=== PATIENT | male | born 1935 | race Caucasian/White ===

== ENCOUNTER 2024-03-29 23:38 | Inpatient (IN) | payer MEDICARE, SELFPAY ==
[2024-03-29 19:59] VITALS: BP 149/85
--- NOTE | 2024-03-29 20:30 | ED.GENMED ---
History of Present Illness
General
Chief Complaint: Change in Mental Status
Source: patient
Exam Limitations: none
Time Seen by Provider: 03/29/24 20:13
History of Present Illness
History of Present Illness:
89-year-old male with history of dementia and subdural hematoma presents with 76 the patient has not been himself today. He seems more confused and irritable. He was having trouble getting himself dressed today which is atypical. He is a
difficult historian secondary to his dementia and confusion currently. But he denies any pain. There is no reported fever at the facility. Typically lives pretty much independently but gets help with his medication.
Past History
Past History
ED Past Medical History: GERD, HTN, Hypercholesterolemia and Other (Subdural hematomas bilaterally)
ED Past Surgical History: None
Social History
Tobacco: Former smoker
Alcohol: Daily
Drug: None
Personal: Single
Living: alone
Employment: Retired
Family History
Family History: Other (reviewed and non-contributory)
Phy Exam
Physical Exam
Physical Exam:
General: Well-appearing male no acute respiratory distress
HEENT: Normocephalic atraumatic
Heart: Tachycardic but regular
Lungs: Subtle expiratory wheeze on the left
Abdomen: Soft nontender
Skin is dry
Neurologic exam: Alert and oriented to person only. No facial asymmetry no unilateral deficit
Extremities: No cyanosis
Course
Orders/Labs/Results
Orders:
Orders
03/29/24 20:26
CT Head W/o Iv Contrast Urgent
Comment:
Reason For Exam: confusion
CR Chest - 2 Views Urgent
Comment:
Reason For Exam: weakness
03/29/24 20:28
Electrocardiogram (*1) Urgent
Reason for Study: Fatigue / Weakness
EKG- Treatment ONCE
03/29/24 20:38
COVID-19 Antigen Urgent
Source: Nasal Swab
Complete Blood Count/With Diff Urgent
Comprehensive Metabolic Panel Urgent
Influenza A+B Rapid Molecular Urgent
DELMER Source: Nasal Swab
Specimen Description:
03/29/24 22:00
Lactic Acid Q4H
Comment: CANCEL 2nd LACTIC ACID IF 1st LACTIC ACID IS LESS THAN 2
Urinalysis Reflex To Culture Urgent
Date Specimen was Collected: 03/29/24
Time Specimen was Collected: 21:30
Urine Microscopic Reflex Cult Urgent
Blood Culture Q30M
DELMER Source: Blood/Venous
Specimen Description:
Urine Culture Urgent
DELMER Source: U
Specimen Description:
Date Specimen was Collected: 03/29/24
Time Specimen was Collected: 21:30
03/29/24 22:30
Blood Culture Q30M
DELMER Source: Blood/Venous
Specimen Description:
03/29/24 22:48
*Vancomycin 2,000 mg Loading Dose (consider for >/= 70 kg) Vancomycin [Vancocin] 2,000 mg 0.9% Sodium Chloride 500 ml [Nss] 500 ml IV NOW
0.9% Sodium Chloride 1000 ml [Nss] 2,800 ml IV NOW STA
Zosyn 3.375 grams IVPB NOW Piperacillin/Tazo 3.375 Gram [Zosyn] 3.375 gram in 50 ml IV NOW
03/30/24 02:00
Lactic Acid Q4H
Comment: CANCEL 2nd LACTIC ACID IF 1st LACTIC ACID IS LESS THAN 2
Abnormal Lab Results
03/29/24 03/29/24
20:38 22:00
WBC 24.5 H 10^3/uL
(4.8-10.8)
Abs Immat Gran (auto) 0.4 H 10^3/uL
(0-0.05)
Absolute Neuts (auto) 20.1 H 10^3/uL
(1.4-6.5)
Absolute Monos (auto) 2.7 H 10^3/uL
(0.1-0.6)
Immature Gran % 1.8 H %
(0-0.5)
Neutrophils % 82.0 H %
(42.2-75.2)
Lymphocytes % 5.1 L %
(20.5-51.1)
Monocytes % 10.9 H %
(1.7-9.3)
Sodium 132 L mmol/L
(135-145)
Glucose 131 H mg/dl
(70-99)
Total Bilirubin 2.6 H mg/dl
(0.2-1.3)
Alkaline Phosphatase 184 H U/L
(38-126)
Urine Ketones 1+ A
(Negative)
Ur Occult Blood Reflex 3+ A
(Negative)
Urine Bilirubin 1+ A
(Negative)
Urine Urobilinogen 2+ A
(Neg - 1+)
Leukocyte Esterase Rfl 2+ A
(Negative)
Urine RBC 7-10 A /HPF
(0-2)
Urine WBC (Reflex) 70-80 A /HPF
(0-5)
Urine Bacteria (Reflex) Moderate A
(Negative)
Urine Albumin (Reflex) 1+ A
(Neg - Trace)
03/29/24 20:38
03/29/24 20:38
Vital Signs
Initial and Last Documented VS:
Initial Vital Signs
Temp Pulse Resp BP Pulse Ox
98.8 F 110 26 149/85 94
03/29/24 19:59 03/29/24 19:59 03/29/24 19:59 03/29/24 19:59 03/29/24 19:59
Last Documented Vital Signs
Temp Pulse Resp BP Pulse Ox
98.8 F 110 26 149/85 94
03/29/24 19:59 03/29/24 19:59 03/29/24 19:59 03/29/24 19:59 03/29/24 19:59
MDM/Problems Addressed
Differential Diagnosis Includes:
Confusion and irritability with weakness. Question electrolyte abnormality versus infection versus brain injury.
Will start workup with EKG labs urinalysis chest x-ray CAT scan
*Critical Care Note
Total Time (30-74mins, 75-104mins- exclusive of procedures): Not Applicable
Update Note
Update Note:
Workup here shows right lower lobe pneumonia on x-ray. White blood cell count is 24,000. Also concern for possible UTI. Septic bolus of fluid ordered lactic acid and blood cultures ordered. Vancomycin and Zosyn ordered. Will admit to hospital
ED Attending Note
-
Portions of this chart may have been created with voice recognition software.� Occasional wrong word or��sound alike� substitutions may have occurred due to the inherent limitations of voice recognition software.
Discharge Plan
Departure
Patient Disposition: Admit
Date of Disposition: 03/29/24
Time of Disposition: 22:51
Admit to: Telemetry
Presentation/result/management discussed w/ accepting MD/DO: Hospitalist
Discharge Problem:
Pneumonia
Prescriptions:
No Action
atorvastatin 10 MG tablet
10 mg PO QPM
benazepril-hydrochlorothiazide 1 TAB tablet
1 tab PO DAILY
omeprazole magnesium 20 MG capsule,delayed release(DR/EC)
20 mg PO DAILYPRN PRN (Reason: acid reflux)
clotrimazole-betamethasone 45 GM cream
1 applic topical DAILY
multivitamin with folic acid [Tab-A-Miguel] 1 TABLET tablet
1 tab PO DAILY
levetiracetam 500 MG tablet
750 mg PO BID Qty: 60 0RF
Referrals:
UNKNOWN - PT NOT,INTERVIEWE [Family Provider] -
Interventions
Interventions:
*Risk Screen - Suicide Last Done: 03/29/24 19:59
*General Assessment Last Done: 03/29/24 19:59
*Neglect/Abuse Screening Last Done: 03/29/24 19:59
Discharge Date and Time
Print Language: NIGERIAN
[2024-03-29 20:35] VITALS: BP 136/79
[2024-03-29 21:05] LABS: % Basophils 0.2 % (0-2); % Immature Granulocytes 1.8 % (0-0.5); % Lymphocytes 5.1 % (20.5-51.1); % Monocytes 10.9 % (1.7-9.3); Absolute Basophils 0.1 10^3/uL (0-0.2); Absolute Immature Granulocytes 0.4 10^3/uL (0-0.05); Absolute Lymphocytes 1.2 10^3/uL (1.2-3.4); Absolute Monocytes 2.7 10^3/uL (0.1-0.6); Absolute Neutrophils 20.1 10^3/uL (1.4-6.5); Hematocrit 41.7 % (39.0-52.0); Hemoglobin 14.4 g/dL (13.0-18.0); Mean Corp Hgb Conc. 34.5 g/dL (33.0-37.0); Mean Corpuscular Hgb 28.9 pg (27.0-31.0); Mean Corpuscular Volume 83.6 fL (80.0-94.0); Mean Platelet Volume 8.2 fL (7.4-10.4); Nucleated Red Blood Cells % 0 % (-); Platelet Count 297 10^3/uL (130-400); Red Blood Cell Count 4.99 10^6/uL (4.70-6.10); Red Cell Dist. Width 13.5 % (11.5-14.5); White Blood Cell Count 24.5 10^3/uL (4.8-10.8)
[2024-03-29 21:08] LABS: ALT (SGPT) 22 U/L (0-50); AST (SGOT) 29 U/L (17-59); Albumin 3.6 g/dl (3.5-5.0); Alkaline Phosphatase 184 U/L (38-126); Blood Urea Nitrogen 18 mg/dl (9-20); Calcium 8.7 mg/dl (8.4-10.2); Carbon Dioxide 23 mmol/L (22-30); Chloride 98 mmol/L (98-107); Glucose 131 mg/dl (70-99); Potassium 4.1 mmol/L (3.5-5.1); Sodium 132 mmol/L (135-145); Total Bilirubin 2.6 mg/dl (0.2-1.3); Total Protein 6.5 g/dl (6.3-8.2); eGFR > 60.00
[2024-03-29 21:10] LABS: COVID-19 Antigen Negative (Negative)
[2024-03-29 22:06] LABS: Urine Albumin 1+ (Neg - Trace); Urine Bilirubin 1+ (Negative); Urine Character Very Cloudy (Clear); Urine Glucose Negative (Negative); Urine Ketone 1+ (Negative); Urine Leukocyte 2+ (Negative); Urine Nitrite Negative (Negative); Urine Occult Blood 3+ (Negative); Urine Urobilinogen 2+ (Neg - 1+)
[2024-03-29 22:37] LABS: Urine Bacteria Moderate (Negative); Urine White Cell 70-80 /HPF (0-5)
[2024-03-29 22:39] VITALS: BP 118/73
--- NOTE | 2024-03-29 22:58 | HPS.HSE ---
Family Physician
-
Family Physician: INTERVIEWE UNKNOWN - PT NOT
Chief Complaint
-
confusion
History of Present Illness
89-year-old male with history of dementia, GERD, hypothyroidism, hypertension,, COPD and subdural hematoma presents with change in mental status since yesterday. Patient refused his medications yesterday and today. As per son he was having trouble
expressing himself and answering any questions. He seemed very restless and irritable. Today pretty much all day he stayed in bed. Patient needed assistance with dressing himself today. Which is very unusual for him. But he denies any pain.
There is no reported fever at the facility. Typically lives pretty much independently but gets help with his medication. Patient has chronic cough. Son noted some runny nose today.son stated, his urine was very dark today.
Chest x-ray with pneumonia. Patient received Zosyn and Vanco in ER. Blood culture sent from ER. Admitting for further management
Medical History
Past Medical History
Past Medical History: Reports Other
Additional Past Medical History:
Hypertension
Hyperlipidemia
GERD
Past Surgical History: Reports None
Social History
Tobacco: Former Smoker
Alcohol: None
Drug: None
Personal: Single
Living: Alone
Family History
Family History: Not pertinent
Allergies / Home Medications
Allergies reflects when Allergies were last updated in [facility].
Home Medications with original date entered in [facility]
Allergy/Medication List:
Allergies
Allergy/AdvReac Type Severity Reaction Status Date / Time
No Known Allergies Allergy Unverified 06/28/18 10:48
Home Medications
atorvastatin 10 mg tablet 10 mg PO QPM 06/28/18
benazepril 20 mg-hydrochlorothiazide 25 mg tablet 1 tab PO DAILY 06/28/18
clotrimazole-betamethasone 1 %-0.05 % topical cream 1 applic topical DAILY rash on penis 06/28/18
multivitamin with folic acid 400 mcg tablet (Tab-A-Miguel) 1 tab PO DAILY 06/28/18
omeprazole magnesium 20 mg capsule,delayed release 20 mg PO DAILYPRN PRN acid reflux 06/28/18
levetiracetam 500 mg tablet 750 mg (1.5 x 500 mg) PO BID #60 tabs 06/30/18
Review of Systems
-
Unable to obtain full review of systems at this time due to: Dementia
Constitutional: Reports No Symptoms
EENT: Reports No Symptoms
Respiratory: Reports No Symptoms
Cardiac: Reports No Symptoms
Abdomen/GI: Reports No Symptoms
: Reports No Symptoms
Musculoskeletal: Reports No Symptoms
Skin: Reports No Symptoms
Neurological: Reports No Symptoms
Endocrine: Reports No Symptoms
Hematologic/Lymphatic: Reports No Symptoms
Psych: Reports No Symptoms
Physical Exam
Vital Signs
Vital Signs
Temp Pulse Resp BP Pulse Ox
98.8 F 110 26 149/85 94
03/29/24 19:59 03/29/24 19:59 03/29/24 19:59 03/29/24 19:59 03/29/24 19:59
Physical Exam
General: Well Developed, Well Nourished and No Apparent Distress
HEENT: NormoCephalic, Moist mucous membranes and Atraumatic
Respiratory: Clear
Cardiac: S1/S2 and Regular Rhythm; No Murmur or Rub
GI: Soft, Non Tender, Non Distended and Normal Bowel Sounds; No Organomegaly
Rectal: Deferred by Provider
Musculoskeletal: No Clubbing, No Cyanosis and No Edema
Skin: No Rash
Neuro: Nonfocal/grossly intact
Psych: Calm and Confused
Laboratory Results
-
03/29/24 20:38
03/29/24 20:38
Laboratory Results
Total Bilirubin 2.6 mg/dl (0.2-1.3) H 03/29/24 20:38
AST 29 U/L (17-59) 03/29/24 20:38
ALT 22 U/L (0-50) 03/29/24 20:38
Alkaline Phosphatase 184 U/L (38-126) H 03/29/24 20:38
Data Reviewed
-
Lab Data: Labs Reviewed by me
Impression/Plan
-
#toxic Metabolic encephalopathy/fatigue likely from pneumonia
-Sepsis as evident by WBCs 24, tachycardia
- Zosyn continued
-COVID-negative, flu negative
-Head CT and chest x-ray pending
-Blood and urine culture sent from ER
-obtain prcal, MRSA
-Risperdal prn for agitation
# Urinary tract infection
-IV Zosyn
-culture pending
# GERD
-PPI continued
# Hypothyroidism
-Levothyroxine continued
# Hypertension
-Benazepril continued
# History of COPD
-Albuterol continued
# DVT prophylaxis
-Lovenox subcu
# CODE STATUS
-DNR
[2024-03-29 23:00] VITALS: BP 125/85
--- NOTE | 2024-03-29 23:18 | W.PN.UPDATE ---
Update Note
Progress Note Update
I could not get any information from the patient has dementia with acute confusion
Information gathered by chart review and speaking with the ER staff.
This note serves as an addendum to the H&P by career education teacher JONG Florina MOSQUEDA
HPI
89 M HX Dementia HTN, HLD , B/L SDH seen at ER :
- pw increased confusion and agitation
PHX: as above
Reviewed VS: afebrile ST 110 Tachypneic RR 26
PE
General: No toxic looking , no acute respiratory distress, restless
HEENT: atraumatic
Heart: Tachycardic but regular
Lungs: wheeze on the left ?
Abdomen: Soft nontender
Skin is dry
Neurologic exam: No facial asymmetry no unilateral deficit
Extremities: No cyanosis
Data
WCC 24
Pending LA
Na 132
NEG MRSA screen in 2019
CXR : Rt LLL PNA in my view
ASSESSMENT & PLAN
Sepsis due to PNA
Rt LLL PNA presumed HAP
NEG Prior MRSA screen in 2019
Independent living res of local facility
- BCx sent
- check MRSA screen
- check PCT
- Empiric IV Zosyn for now
Associated with hyperactive TME with agitation
HX Dementia
- Risperidone M 0.25 mg BID PRN fort agitation - hold for sedation
HLD on Atorvastatin - to becont
Essential HTN- cont OP meds
Remote HXSz on Keppra- to be cont
HX b/l SDH
DVT Px: SQH
DNR
IP TLM
[2024-03-29 23:21] LABS: Lactic Acid 1.3 mmol/L (0.7-2.0)
[2024-03-29] MEDS: NSS 2800 ML IV (23:39)
[2024-03-29] MEDS: ZOSYN 50 IV (23:40)
[2024-03-30] VITALS (8 sets, daily range): BP systolic 87–128; BP diastolic 49–72
[2024-03-30] MEDS: VANCOCIN 540 MG IV (00:59)
[2024-03-30] MEDS: DESYREL 50 MG PO ×2 (01:00→22:52)
[2024-03-30] MEDS: RISPERDAL M-TAB (ORALLY DISINTEGRATING) 0.5 MG PO ×2 (02:42→12:41)
[2024-03-30] MEDS: DUONEB 3 ML INH ×2 (03:00→23:03)
[2024-03-30] MEDS: NSS 1000 IV ×2 (04:12→14:18)
[2024-03-30] MEDS: TYLENOL 650 MG PO (05:24)
[2024-03-30 06:11] LABS: Hematocrit 36.9 % (39.0-52.0); Hemoglobin 12.6 g/dL (13.0-18.0); Mean Corp Hgb Conc. 34.1 g/dL (33.0-37.0); Mean Corpuscular Hgb 29.5 pg (27.0-31.0); Mean Corpuscular Volume 86.4 fL (80.0-94.0); Platelet Count 251 10^3/uL (130-400); Red Blood Cell Count 4.27 10^6/uL (4.70-6.10); Red Cell Dist. Width 13.5 % (11.5-14.5); White Blood Cell Count 22.2 10^3/uL (4.8-10.8)
[2024-03-30] MEDS: ZOSYN 50 IV ×3 (06:51→17:10)
[2024-03-30 06:57] LABS: Procalcitonin 1.38 ng/ml (0.0-0.25)
[2024-03-30] MEDS: EXELON PATCH 9.5 MG TRANSDERM (08:21)
[2024-03-30] MEDS: ZESTRIL 10 MG PO (08:24)
[2024-03-30] MEDS: PROTONIX 40 MG PO (08:26)
[2024-03-30] MEDS: SYNTHROID 50 MCG PO (08:27)
[2024-03-30] MEDS: HEPARIN 5000 UNITS SC ×2 (08:28→22:51)
--- NOTE | 2024-03-30 14:02 | W.PN.HOSP.TC ---
Today's Communication/Plan
-
Assessment / Plan
Assessment / Plan
Physical Exam
NAD, resting comfortably in bed
Scleral anicteric
Moist mucous membranes
No JVD
CTA bilateral
Normal S1-S2 no murmurs
Soft nontender nondistended bowel sounds active
No peripheral pitting edema
Moves extremities spontaneously
AAOx1 (person)
TME on dementia likely secondary to underlying infectious process that being UTI vs PNA has high procal
-blood/urine cultures pending
-ivatb with zosyn
-covid/flu neg
-can check b12/folate, tsh
Hyponatremic - hypovolemia
-give fluids
-repeat bmp in the AM
GERD
-Cotninue ppi
Hypothyroidism
-COntinue levothyroxine
-Check tsh
Anticipated Discharge: 24 - 48 hours
Subjective/Interval History
-
Date of Service: March 30, 2024
seen and examined.
confused and demented
no acute overnight events
Objective Data
-
Labs:
Laboratory Results
03/30/24
06:02
WBC 22.2 H
Hgb 12.6 L
Hct 36.9 L
Plt Count 251
Vital Signs:
Vital Signs
Temp Pulse Resp BP Pulse Ox
98.1 F 82 23 87/57 93
03/30/24 12:27 03/30/24 08:24 03/30/24 07:50 03/30/24 12:28 03/30/24 12:29
[2024-03-31] MEDS: ZOSYN 50 IV ×4 (00:24→17:32)
[2024-03-31] MEDS: NSS 1000 IV ×2 (00:28→17:32)
--- NOTE | 2024-03-31 01:30 | PTCARENOTE ---
Patient arrived to unit via hospital bed accompanied by ED PCT and RN. Bob present. IVF infusing via L arm PIV. Nursing assessment completed and as documented. Oriented to room, instructed use of call cr and within reach, VSS, care ongoing.
[2024-03-31 01:34] VITALS: BP 105/62
[2024-03-31 03:00] VITALS: BP 105/57
[2024-03-31 06:01] LABS: Hematocrit 36.6 % (39.0-52.0); Mean Corp Hgb Conc. 32.8 g/dL (33.0-37.0); Mean Corpuscular Hgb 28.7 pg (27.0-31.0); Mean Corpuscular Volume 87.6 fL (80.0-94.0); Mean Platelet Volume 7.9 fL (7.4-10.4); Platelet Count 288 10^3/uL (130-400); Red Blood Cell Count 4.18 10^6/uL (4.70-6.10); Red Cell Dist. Width 13.7 % (11.5-14.5); White Blood Cell Count 17.4 10^3/uL (4.8-10.8)
[2024-03-31 06:35] LABS: Blood Urea Nitrogen 19 mg/dl (9-20); Carbon Dioxide 24 mmol/L (22-30); Chloride 105 mmol/L (98-107); Estimated Creatinine Clearance 47 ml/min; Glucose 93 mg/dl (70-99); Sodium 136 mmol/L (135-145); eGFR > 60.00
[2024-03-31 07:04] LABS: TSH Reflex To Free T4 0.81 uIU/ml (0.47-4.68)
[2024-03-31 07:39] LABS: Folate 6.3 ng/ml (2.76-20); Vitamin B12 > 1000 pg/ml (239-931)
[2024-03-31] MEDS: RISPERDAL M-TAB (ORALLY DISINTEGRATING) 0.5 MG PO ×2 (08:16→22:22)
--- NOTE | 2024-03-31 08:25 | W.PN.UPDATE ---
Update Note
Progress Note Update
I saw and evaluated the patient. I reviewed the resident�s note and agree with findings and plan as documented in the resident�s note.
Gen: NAD, Awake and alert
Eyes: EOMI, PERRLA, no scleral icterus.
Neck: supple.
CV: RRR, +S1/S2, no m/r/g.
Resp: CTAB, no rales, wheezes, or rhonchi.
Abd: +BS, soft, NT, ND
Skin: No rashes.
Neuro: CN 2-12 intact, non-focal.
Psych: Normal mood and affect.
CXR: Findings suggesting mild right lower lobe pneumonia. New.
CT brain: No acute intracranial pathology. Severe atrophy. Progressed. Mild nonacute sinusitis. Improved. Moderate periventricular small vessel ischemic disease. Progressed.
Sepsis, POA, and acute metabolic encephalopathy (with underlying dementia) due to RLL PNA +/- UTI:
-elevated procal
-COVID/Flu NEG
-BCxs NGTD, UCx pending
-imaging above
-cont Zosyn
-cont Exelon patch. Currently on restraints.
Other problems:
Essential HTN: cont ACEi
Hypovolemic hyponatremia, resolved with IVFs
GERD: cont PPI
Hypothyroidism: TSH normal, cont Levoxyl
DNR/heparin
--- NOTE | 2024-03-31 09:33 | W.PN.HOSP.TC ---
Today's Communication/Plan
-
Continue Zosyn
As long as patient is not cooperative with oral intake, continue IV fluid
Continue to monitor CBC, BMP for an additional day
Continue to follow cultures
Case management consulted
OT PT
Assessment / Plan
Assessment / Plan
89-year-old male presenting with increased confusion and agitation to the ED. Was found to have leukocytosis (wbc=24) and mild hyponatremia on initial labs in ED. chest x-ray suggested right lower lobe pneumonia.
Chronic conditions prior to admission
Dementia (d/t Alzheimer's disease?)
History of bilateral subdural hematoma in 2019
Essential hypertension
Hyperlipidemia
GERD
Hypothyroidism
CXR (03/29):
The lungs show moderate airspace disease in right lower lung field concerning for pneumonia.. No pleural effusion or pneumothorax.
Head CT (03/29):
There is severe ventricular sulcal prominence consistent with atrophy. There is mild decreased attenuation about the lateral ventricles consistent with periventricular small vessel ischemic disease. Both progressed.
No acute intracranial pathology.
# Confusion/agitation
- Likely in the setting of underlying dementia exacerbated by infectious process (UTI and/or pneumonia)
- U/C pending
- B/C negative after 24 hours- continue to follow
- Covid/flu negative
- MRSA negative
- Urine Legionella antigen test negative
- Leukocytosis improving-afebrile for the past 24 hours
- Continue Zosyn Q6h
- Vitamin B12 slightly high, folate and TSH within normal limits
- Physical restraints
- Continue rivastigmine for underlying dementia
- Consult case management for dispo plan
- OT/PT/ST
- Neuro consult
# Mild hypovolemic hyponatremia
- Resolved
- Receiving N/S @ 75 cc/h
# History of GERD
- Continue pantoprazole
# History of hypothyroidism
- Continue home levothyroxine
# History of hypertension
- Controlled
- lisinopril 10 with parameters
# DVT prophylaxis
-Heparin 5000 SC every 12 hours
CODE STATUS: DNR
Anticipated Discharge: Within 24 hours
Subjective/Interval History
-
Date of Service: March 31, 2024
Patient is not cooperative in answering questions. Continuously shouts for help ' to get out of here'.
Objective Data
-
Labs:
Laboratory Results
03/31/24
05:32
WBC 17.4 H
Hgb 12.0 L
Hct 36.6 L
Plt Count 288
Sodium 136
Potassium 4.0
Chloride 105
Carbon Dioxide 24
BUN 19
Creatinine 1.1
Glucose 93
Calcium 8.0 L
Vital Signs:
Vital Signs
Temp Pulse Resp BP Pulse Ox
97.9 F 79 14 105/57 94
03/31/24 03:00 03/31/24 03:00 03/31/24 03:00 03/31/24 03:00 03/31/24 03:00
Review of Systems
-
Unable to obtain full review of systems at this time due to: Dementia
Physical Exam
-
HEENT: Normocephalic, Moist Mucous Membranes and Anicteric
Respiratory: Wheezes (on expiration)
Cardiac: Regular Rhythm and S1/S2
GI: Soft, Nontender, Nondistended and Normal Bowel Sounds
Musculoskeletal: No Clubbing, No Cyanosis and No Edema
Skin: Warm and Dry
Neuro: Awake, Alert, Oriented, No Motor Deficits, No Sensory Deficits and Slurred Speech (negative)
Psych: Agitated and Other (non-cooperative)
[2024-03-31 10:41] VITALS: BP 102/57
[2024-03-31] MEDS: EXELON PATCH 9.5 MG TRANSDERM (11:31)
[2024-03-31] MEDS: PROTONIX 40 MG PO (11:32)
[2024-03-31] MEDS: HEPARIN 5000 UNITS SC ×2 (11:32→20:23)
[2024-03-31] MEDS: ZESTRIL 10 MG PO (11:32)
[2024-03-31] MEDS: SYNTHROID PO (11:35)
[2024-03-31 15:00] VITALS: BP 103/58
--- NOTE | 2024-03-31 15:23 | PTOTSP ---
Speech Therapy Evaluation:
Pt exhibits clinical signs of oropharyngeal dysphagia, likely chronic in nature related to hx of dementia, GERD, COPD, and SDH, acutely exacerbated by change in mental status. CXR revealed RLL PNA. UGI Series in 2019 revealed lodgement of barium
tablet in distal esophagus. Pt with 1x immediate cough following thin liquids via straw, however difficult to reliably attribute to aspiration related event d/t limitations at bedside and baseline cough. PO trials d/c d/t increased work of breathing
and audible wheezing.
Recommend:
1. NPO
2. Essential medications crushed in puree
3. Oral care 3x daily
4. VSE to further assess oropharyngeal swallow function given multiple chronic risk factors and RLL PNA
5. ST to follow
--- NOTE | 2024-03-31 16:14 | CM ---
CM spoke with son/Sina Phillip
Pt address incorrect on chart
Pt now resides at [facility] [address] [place] [address]
Pt is in independent living with private pay assist for med management
[facility] and [facility] provides to facility
Pt is independent with ambulation without a AD
He dresses and toilets independently
Son provides cueing a few times a week for bathing
Son is an OT
[facility]- [facility]
Rx- mail order through [facility] or [facility] if needed
VN vs SNF recs
Son noting pt likely will fair better at home with [facility] outpt due to dementia
SNF list bedside for him to review later today
Discharge Disposition- home likely with outpt PT/OT through [facility]
[2024-03-31 19:45] VITALS: BP 152/81
--- NOTE | 2024-03-31 21:23 | PTCARENOTE ---
pt's son and ROMULOA meghna pt has no cardiac hx and refuses telemetry- telemetry box and wires agitating pt- tele box/wires removed per request
[2024-03-31] MEDS: DESYREL 50 MG PO (22:22)
[2024-04-01] MEDS: ZOSYN 50 IV ×2 (00:19→05:06)
[2024-04-01 01:20] VITALS: BP 116/56
[2024-04-01 04:22] VITALS: BMI 29.0
[2024-04-01 06:15] LABS: Hematocrit 34.1 % (39.0-52.0); Hemoglobin 11.6 g/dL (13.0-18.0); Mean Corpuscular Hgb 29.8 pg (27.0-31.0); Mean Corpuscular Volume 87.7 fL (80.0-94.0); Mean Platelet Volume 8.2 fL (7.4-10.4); Platelet Count 316 10^3/uL (130-400); Red Blood Cell Count 3.89 10^6/uL (4.70-6.10); Red Cell Dist. Width 13.9 % (11.5-14.5); White Blood Cell Count 11.9 10^3/uL (4.8-10.8)
[2024-04-01 06:44] LABS: Blood Urea Nitrogen 17 mg/dl (9-20); Calcium 7.7 mg/dl (8.4-10.2); Carbon Dioxide 24 mmol/L (22-30); Chloride 105 mmol/L (98-107); Estimated Creatinine Clearance 52 ml/min; Glucose 79 mg/dl (70-99); Potassium 3.8 mmol/L (3.5-5.1); Sodium 137 mmol/L (135-145); eGFR > 60.00
[2024-04-01 07:47] VITALS: BP 118/65
--- NOTE | 2024-04-01 08:23 | W.PN.UPDATE ---
Addendum entered and electronically signed by Kuldeep Song MD 04/01/24 13:38:
Aspiration pneumonia
Original Note:
Update Note
Progress Note Update
I saw and evaluated the patient. I reviewed the resident�s note and agree with findings and plan as documented in the resident�s note.
Gen: NAD, Awake and alert
Eyes: EOMI, PERRLA, no scleral icterus.
Neck: supple.
CV: remains RRR, +S1/S2, no m/r/g.
Resp: expiratory wheezes which are at least in part due to transmission of upper airway sounds
Skin: No rashes.
Neuro: remains CN 2-12 intact, non-focal.
Psych: Normal mood and affect.
CXR: Findings suggesting mild right lower lobe pneumonia. New.
CT brain: No acute intracranial pathology. Severe atrophy. Progressed. Mild nonacute sinusitis. Improved. Moderate periventricular small vessel ischemic disease. Progressed.
Sepsis, POA, and acute metabolic encephalopathy (with underlying dementia) due to RLL PNA and UTI:
-elevated procal
-COVID/Flu NEG
-BCxs NGTD, UCx with Klebsiella
-imaging above
-stop Zosyn, transition to Ceftin to complete 7 days abx
-cont Exelon patch. Currently on restraints.
Other problems:
Essential HTN: cont ACEi
Hypovolemic hyponatremia, resolved with IVFs
GERD: cont PPI
Hypothyroidism: TSH normal, cont Levoxyl
DNR/heparin
Medically cleared for d/c. Case management aware.
--- NOTE | 2024-04-01 09:20 | PTOTSP ---
Speech Language Pathology
VIDEOFLUOROSCOPIC SWALLOWING EXAMINATION (VSE) completed. Pt moving frequently during study despite frequent redirection, making visualization hard at times. Mild oral and mod-severe pharyngeal dysphagia noted. Minimal distention of
pharyngoesophageal segment (PES) noted with backflow from PES into pyriform sinuses. This was not visualized to spill into airway, but pt is at high risk for this. Penetration to the level of the vocal folds (PAS 5) with questionable aspiration
(difficult to visualize secondary to moving), noted with tsp of thin liquids. With thin liquid via single cup sip, no penetration/aspiration noted on first with penetration to level of the vocal folds with 2nd. Consecutive straw sips of thin
liquids resulted in silent aspiration (PAS 8). Mildly thick liquids via tsp resulted in supraglottic penetration which fully cleared (PAS 2), but via cup, resulted in penetration to the level of the vocal folds. No penetration/aspiration noted
with moderately thick liquids, puree, or regular solids.
Pt is at a high risk for aspiration during the swallow and following swallow secondary to backflow from PES into pyriform sinuses.
Recommend:
(1) Consider IDDSI Level 5 (minced/moist) and moderately thick liquids via tsp/cup. This diet will still carry a risk of aspiration
(2) Aspiration precautions: sit upright during meals and for at least 30 minutes post meals, single sips, no straws, slow rate, intermittent cough/reswallow
(3) Meds whole in puree
(4) Consider GI consult given minimal distention of PES with backflow into pharynx
(5) [employer] [facility] to continue to follow
--- NOTE | 2024-04-01 09:30 | W.PN.HOSP.TC ---
Addendum entered and electronically signed by Gomez Stein MD, Resident 04/01/24 12:30:
Response to CDI:
RLL PNA possibly Aspiration Pneumonia
Original Note:
Today's Communication/Plan
-
Patient is medically stable for discharge today
Assessment / Plan
Assessment / Plan
89-year-old male presenting with increased confusion and agitation to the ED. Was found to have leukocytosis (wbc=24) and mild hyponatremia on initial labs in ED. chest x-ray suggested right lower lobe pneumonia.
Chronic conditions prior to admission
Dementia (d/t Alzheimer's disease?)
History of bilateral subdural hematoma in 2019
Essential hypertension
Hyperlipidemia
GERD
Hypothyroidism
CXR (03/29):
The lungs show moderate airspace disease in right lower lung field concerning for pneumonia.. No pleural effusion or pneumothorax.
Head CT (03/29):
There is severe ventricular sulcal prominence consistent with atrophy. There is mild decreased attenuation about the lateral ventricles consistent with periventricular small vessel ischemic disease. Both progressed.
No acute intracranial pathology.
# Confusion/agitation
- Likely in the setting of underlying dementia exacerbated by infectious process (UTI and/or pneumonia)
- U/C positive for Klebsiella
- B/C negative after 48 hours
- Covid/flu negative
- MRSA negative
- Urine Legionella antigen test negative
- Leukocytosis improving-afebrile for the past 24 hours
- Stop Zosyn, transition to Ceftin x7 days
- Vitamin B12 slightly high, folate and TSH within normal limits
- Patient is more calm after receiving 1 dose of Risperdal- off physical restraints
- Continue rivastigmine for underlying dementia
- Consult case management for dispo plan
- OT/PT/ST-speech recommending VSE
- Case management-after discussion with Son, plan is to discharge to home likely with outpt PT/OT through [facility]
# Mild hypovolemic hyponatremia
- Resolved
- Receiving N/S @ 75 cc/h
# History of GERD
- Continue Pantoprazole
# History of hypothyroidism
- Continue home Levothyroxine
# History of hypertension
- Controlled
- Lisinopril 10 with parameters
# DVT prophylaxis
-Heparin 5000 SC every 12 hours
CODE STATUS: DNR
Anticipated Discharge: Today
Subjective/Interval History
-
Date of Service: April 01, 2024
Patient is pleasantly confused. Not agitated and resting calmly in bed. Physical restraints removed. Does know time of day.
Objective Data
-
Labs:
Laboratory Results
04/01/24
05:19
WBC 11.9 H
Hgb 11.6 L
Hct 34.1 L
Plt Count 316
Sodium 137
Potassium 3.8
Chloride 105
Carbon Dioxide 24
BUN 17
Creatinine 1.0
Glucose 79
Calcium 7.7 L
Vital Signs:
Vital Signs
Temp Pulse Resp BP Pulse Ox
98.5 F 63 18 118/65 92
04/01/24 07:47 04/01/24 07:47 04/01/24 07:47 04/01/24 07:47 04/01/24 07:47
I&O
03/31/24 04/01/24 04/02/24
06:59 06:59 06:59
Intake Total 900 / 900
Balance 900 / 900
Review of Systems
-
Unable to obtain full review of systems at this time due to: Dementia
Physical Exam
-
HEENT: Normocephalic, Moist Mucous Membranes and Anicteric
Respiratory: Wheezes (on expiration (left > right)), Crackles (right-sided) and Non Labored Respirations
Cardiac: Regular Rhythm and S1/S2
GI: Soft, Nontender, Nondistended and Normal Bowel Sounds
Musculoskeletal: No Clubbing, No Cyanosis and No Edema
Skin: Warm and Dry
Neuro: Awake, Alert, No Motor Deficits, No Sensory Deficits and Slurred Speech (negative)
Psych: Agitated and Other (non-cooperative)
[2024-04-01] MEDS: ZESTRIL 10 MG PO (10:13)
[2024-04-01] MEDS: EXELON PATCH 9.5 MG TRANSDERM (10:23)
[2024-04-01] MEDS: PROTONIX 40 MG PO (10:23)
[2024-04-01] MEDS: SYNTHROID 50 MCG PO (10:23)
[2024-04-01] MEDS: HEPARIN 5000 UNITS SC ×2 (10:24→22:22)
[2024-04-01] MEDS: NSS 1000 IV (10:29)
[2024-04-01 11:00] VITALS: BP 122/69; PULSE 66; O2SAT 95
--- NOTE | 2024-04-01 11:04 | CM ---
CM reviewed pt with Dr Song
Findings per VSE- not ready for dc today
CM reviewed pt with PT/OT- recs for return to [place] building with continued therapy, [facility] preferred provider
If speech therapy needed on dc, [facility] confirmed they can provided in building
Update to son/Sina
He noted if [facility] recommended on dc, does not want hospital to provide through
He will purchase walker if needed
Plan to send referral to [facility] if speech needed on dc, son in agreement with provider plan
Discharge Disposition- return home with [facility] outpt vs [facility] with speech
[2024-04-01 11:42] VITALS: BP 122/69; PULSE 62; O2SAT 95
--- NOTE | 2024-04-01 11:58 | PN.CDI ---
CDI
- -
CDI:
Physician Documentation Request
Admit Date: 03/29/24 23:38
Dear Doctor,
Please review the following and provide your response in the progress notes.
Clinical Indicators:
- 04/01 PN 'RLL PNA'
- VSE performed
- 04/01 Speech note 'Mild oral and mod-severe pharyngeal dysphagia noted'
- 'Pt is at a high risk for aspiration during the swallow and following swallow secondary to backflow from PES into pyriform sinuses'
- IV abx Zosyn given
Please clarify in the Progress Notes further specificity regarding the known, suspected or likely type of pneumonia you are treating (recognizing the specific organism may not be known)?
Aspiration Pneumonia - indicate substance such as food or vomitus, oils or other solids or liquids
Staph Pneumonia - indicate if MRSA or MSSA
Strep Pneumonia - indicate if strep B, strep pneumoniae or other type
Gram negative Pneumonia - indicate if Pseudomonas, Klebsiella or other
Other organism - specify known or suspected type
Use of terms such as suspected, likely, concern for, or probable (associated with a specific diagnosis that is being evaluated, monitored, or treated as if it exists) are acceptable and can be coded in the inpatient setting, when documented at the
time of discharge.
Thank you,
Dave Shahid RN
CDI Specialist
Please use your independent medical judgment in providing your response.
--- NOTE | 2024-04-01 12:31 | CON.MD ---
Consultation - Medical
-
dysphagia
89 yo c dementia admitted c mental status change, dx'ed with pneumonia, likely aspiration
Had VSE showing aspiration of thin liquids, but not thickened /pureed
Also showed tight upper esophageal sphincter
Pt awake, some confusion, no distress
Voice strong, no resp symptoms
OC - normal
Pt would not allow/ tolerate endoscopic exam of hypopharynx
A/P Dysphagia
Voice strong, pt alert
Medically stable for d/c today
Cannot fully evaluate hypopharynx , but strong voice
Would recommend thickened diet
Could follow up as outpt though still unlikely to allow hypopharyngeal exam
Esphageal dilation a consideration but would require anesthesia and don't feel pt can understand or consent
[2024-04-01] MEDS: RISPERDAL M-TAB (ORALLY DISINTEGRATING) 0.5 MG PO ×2 (13:30→19:51)
[2024-04-01 14:58] VITALS: BP 132/80
--- NOTE | 2024-04-01 16:11 | W.PN.UPDATE ---
Update Note
Progress Note Update
Spoke with son, Sina, and updated him regarding speech/dietary recommendations.
Also, updated him regarding ENT evaluation. He is interested in OP follow-up appointment with Dr. Callaway's office. I provided him the contact number to call their office.
--- NOTE | 2024-04-01 19:16 | VATNOTE ---
called to restart pt's IV; unsuccessful x3; staff advised pt very agitated while in chair. staff attempting to move pt to bed and restrain. will try again.
--- NOTE | 2024-04-01 20:00 | PTCARENOTE ---
@1915;Pt agitated,impulsive, getting OOB quickly while bed alarm rings, gait unsteady & holding onto bed rails/table top ,oriented x1 to self only,pulled out IV and unable to be verbally redirected.Pt frequently stating,'why I'm I here.' HAND ENGRAVER S.
[facility] verbally notified via phone call on above note.@192;pt placed in soft R&L wrist restraints/4rails for pt's safety.Bed alarm and med sitter maintained.Pt post bladder scanned for 30ml and voided 50ml.
[2024-04-01] MEDS: DUONEB 3 ML INH (21:44)
--- NOTE | 2024-04-01 21:59 | W.PN.UPDATE ---
Update Note
Progress Note Update
Defuroxime tablets are not recommend to be crushed due to bitter taste, recommended by pharmacist to change to Cefprozil suspension as the patient has difficult swallowing. Order changed as recommended.
[2024-04-01] MEDS: CEFZIL 500 MG PO (22:22)
[2024-04-01] MEDS: DESYREL 50 MG PO (22:22)
[2024-04-01 23:18] VITALS: BP 124/61
--- NOTE | 2024-04-01 23:55 | PTCARENOTE ---
@2155;Found pt and pt's son,Sina,in the bathroom and out of restraints. Sina stated,'He had to pee,so I took him out and walked to the bathroom.He only peed a little'.Pt's gait unsteady in bathroom. Instructed sina on pt's unstable gait,getting OOB
without assistance,impulsiveness, not following verbal redirection and the use of restraints for pt safety.Sina agreed to stay and sit with pt as pt sat in chair.Sina agreed to call staff when he was ready to leave. Pt was able to take his evening
meds and prn trazodone 50mg po in the presence of Sina.@2315; Pt appeared to be getting tired and Sina assisted this RN to transfer pt in bed.Sina stated,' His gait was better last night'.Pt appeared comfortable in bed and was closing his eye .Bed
alarm and med sitter maintained. Sina left after pt was in bed.
[2024-04-02] MEDS: NSS 1000 IV (01:14)
--- NOTE | 2024-04-02 05:24 | PTCARENOTE ---
Pt is voiding concentrated dark yellow urine this shift.
[2024-04-02 06:58] LABS: Hematocrit 34.7 % (39.0-52.0); Hemoglobin 11.4 g/dL (13.0-18.0); Mean Corp Hgb Conc. 32.9 g/dL (33.0-37.0); Mean Corpuscular Hgb 28.9 pg (27.0-31.0); Mean Corpuscular Volume 88.1 fL (80.0-94.0); Platelet Count 322 10^3/uL (130-400); Red Blood Cell Count 3.94 10^6/uL (4.70-6.10); Red Cell Dist. Width 13.7 % (11.5-14.5); White Blood Cell Count 9.1 10^3/uL (4.8-10.8)
[2024-04-02 07:00] VITALS: BP 106/56
[2024-04-02 07:22] LABS: Blood Urea Nitrogen 13 mg/dl (9-20); Calcium 7.8 mg/dl (8.4-10.2); Carbon Dioxide 24 mmol/L (22-30); Chloride 104 mmol/L (98-107); Estimated Creatinine Clearance 65 ml/min; Glucose 90 mg/dl (70-99); Potassium 3.9 mmol/L (3.5-5.1); Sodium 136 mmol/L (135-145); eGFR > 60.00
--- NOTE | 2024-04-02 08:51 | W.PN.HOSP.TC ---
Today's Communication/Plan
-
Patient is medically stable for discharge
Son has left message for his dad to be discharged to SNF
CM will work on dispo
Assessment / Plan
Assessment / Plan
89-year-old male presenting with increased confusion and agitation to the ED. Was found to have leukocytosis (wbc=24) and mild hyponatremia on initial labs in ED. chest x-ray suggested right lower lobe pneumonia.
Chronic conditions prior to admission
Dementia (d/t Alzheimer's disease?)
History of bilateral subdural hematoma in 2019
Essential hypertension
Hyperlipidemia
GERD
Hypothyroidism
CXR (03/29):
The lungs show moderate airspace disease in right lower lung field concerning for pneumonia.. No pleural effusion or pneumothorax.
Head CT (03/29):
There is severe ventricular sulcal prominence consistent with atrophy. There is mild decreased attenuation about the lateral ventricles consistent with periventricular small vessel ischemic disease. Both progressed.
No acute intracranial pathology.
# Confusion/agitation
- Likely in the setting of underlying dementia exacerbated by infectious process (UTI and/or pneumonia)
- U/C positive for Klebsiella
- B/C negative after 72 hours
- Covid/flu negative
- MRSA negative
- Urine Legionella antigen test negative
- Leukocytosis resolved-afebrile for the past 72 hours
- Zosyn dc'ed , transitioned to Ceftin x7 days-patient could not tolerate Ceftin and was given Cefzil instead
- Vitamin B12 slightly high, folate and TSH within normal limits
- Patient received Risperdal x2 over the past 24 hours- required physical restraints at night
- Continue rivastigmine for underlying dementia
- Case management involved re dispo plan-Patient's son, Axel, who is POA, would like his dad to go to SNF
- Appreciate speech evaluation-VSE shows minimal distention of PES with backflow into pharynx-recommend IDDSI 5 and thick liquids- Also consulted ENT and GI (through [facility])
- Appreciate ENT- Pt would not allow/ tolerate endoscopic exam of hypopharynx-Esphageal dilation a consideration as OP-Patient's son was given contact information for Dr. Callaway's office to follow as outpatient
- Appreciate GI-if patient does not tolerate diet, could consider PEG
# Mild hypovolemic hyponatremia
- Resolved
- Receiving N/S @ 75 cc/h
# History of GERD
- Continue Pantoprazole
# History of hypothyroidism
- Continue home Levothyroxine
# History of hypertension
- Controlled
- Lisinopril 10 with parameters
# DVT prophylaxis
-Heparin 5000 SC every 12 hours
CODE STATUS: DNR
Anticipated Discharge: Within 24 hours
Subjective/Interval History
-
Date of Service: April 02, 2024
Patient is sleeping in bed. No agitated or violent. Mentions he is feeling good.
Objective Data
-
Labs:
Laboratory Results
04/02/24
06:09
WBC 9.1
Hgb 11.4 L
Hct 34.7 L
Plt Count 322
Sodium 136
Potassium 3.9
Chloride 104
Carbon Dioxide 24
BUN 13
Creatinine 0.8
Glucose 90
Calcium 7.8 L
Vital Signs:
Vital Signs
Temp Pulse Resp BP Pulse Ox
98 F 57 17 106/56 95
04/02/24 07:00 04/02/24 07:00 04/02/24 07:00 04/02/24 07:00 04/02/24 07:00
I&O
04/01/24 04/02/24 04/03/24
06:59 06:59 06:59
Intake Total 900 / 900 1140 / 1140
Output Total 275 / 275
Balance 900 / 900 865 / 865
Review of Systems
-
Unable to obtain full review of systems at this time due to: Dementia
Physical Exam
-
HEENT: Normocephalic, Moist Mucous Membranes and Anicteric
Respiratory: Wheezes (on expiration (left > right)), Crackles (right-sided) and Non Labored Respirations
Cardiac: Regular Rhythm and S1/S2
GI: Soft, Nontender, Nondistended and Normal Bowel Sounds
Musculoskeletal: No Clubbing, No Cyanosis and No Edema
Skin: Warm and Dry
Neuro: Awake, Alert, No Motor Deficits, No Sensory Deficits and Slurred Speech (negative)
Psych: Agitated and Other (non-cooperative)
--- NOTE | 2024-04-02 08:59 | CM ---
Addendum entered by Gaviota Joseph RN 04/02/24 15:43:
CM spoke with Rc from [facility]. He confirmed that [facility] have received clinicals and face sheet. CM provided correct address for [place].
Addendum entered by Gaviota Joseph RN 04/02/24 10:55:
Patient's son evaluated the patient at bedside this morning and feels patient will do fine at home with [facility] and [facility].
Referral faxed to [facility] ([phone])
[facility] fax ([phone])
Patient's son will provide transportation home. Attending updated.
Addendum entered by Gaviota Joseph RN 04/02/24 09:30:
IMM reviewed with patient's son via telephone. Copy of letter left at bedside.
Original Note:
Received message from the patient's son that he is interested in the patient going to SNF prior to returning to home. Requested referrals be sent to [place], [facility], [facility], and [facility]. Sent with [facility]. CM continues to
be available to patient/family and is monitoring medical plan for needs at discharge.
Plan: Discharge to SNF/rehab once bed secured. No precert required.
[2024-04-02] MEDS: CEFZIL 500 MG PO (09:15)
[2024-04-02] MEDS: EXELON PATCH 9.5 MG TRANSDERM (09:16)
[2024-04-02] MEDS: SYNTHROID 50 MCG PO (09:16)
[2024-04-02] MEDS: HEPARIN 5000 UNITS SC (09:16)
[2024-04-02] MEDS: ZESTRIL 10 MG PO (09:16)
[2024-04-02] MEDS: PROTONIX 40 MG PO (09:16)
[2024-04-02 11:00] VITALS: BP 122/84
--- NOTE | 2024-04-02 11:31 | W.PN.UPDATE ---
Update Note
Progress Note Update
I saw and evaluated the patient. I reviewed the resident�s note and agree with findings and plan as documented in the resident�s note.
No new complaints.
Gen: NAD, Awake and alert
Eyes: EOMI, PERRLA, no scleral icterus.
Neck: supple.
CV: continues to remain RRR, +S1/S2, no m/r/g.
Resp: CTAB anteriorly
Skin: No rashes.
Neuro: continues to remain CN 2-12 intact, non-focal.
Psych: Normal mood and affect.
CXR: Findings suggesting mild right lower lobe pneumonia. New.
CT brain: No acute intracranial pathology. Severe atrophy. Progressed. Mild nonacute sinusitis. Improved. Moderate periventricular small vessel ischemic disease. Progressed.
Sepsis, POA, and acute metabolic encephalopathy (with underlying dementia) due to RLL aspiration PNA and UTI:
-elevated procal
-COVID/Flu NEG
-BCxs NGTD, UCx with Klebsiella
-imaging above
-was on Zosyn, now transitioned to Cefprozil to complete 7 days abx
-cont Exelon patch.
Other problems:
Essential HTN: cont ACEi
Hypovolemic hyponatremia, resolved with IVFs
GERD: cont PPI
Hypothyroidism: TSH normal, cont Levoxyl
Patient's son updated at bedside.
DNR/heparin
Medically cleared for discharge.
Total time spent on d/c = 31 min. This included today's physical exam, progress note, review of laboratory and diagnostic data, preparation of discharge documents and prescriptions, and discussions about the pt's hospital course and discharge plan
with the patient and other medical billing manager involved in the patient's care.
--- NOTE | 2024-04-02 12:05 | PTCARENOTE ---
Discharge order written and instructions reviewed with patient and patients son. Discharge instructions reviewed. No further questions. Pt escorted to son's car via volunteer and wheelchair.
--- NOTE | 2024-04-02 12:19 | W.DCSUMMARY ---
Addendum entered and electronically signed by Kuldeep Song MD 04/02/24 13:23:
Read, reviewed, and agree. See same day progress note for additional details.
Original Note:
Discharge Summary
Discharge Data
Date of Admission: 03/29/24
Date of Discharge: 04/02/24
-
Pending Results: No
Hospital Course
Patient is a 89-year-old male with past medical history of dementia (d/t Alzheimer's disease?), bilateral subdural hematoma in 2019, essential hypertension, hyperlipidemia, GERD and hypothyroidism who presented with increased confusion and agitation
to the ED. Initial evaluation showed leukocytosis (wbc=24), active U/A and mild hyponatremia. Imaging in ED reveled:
CXR (03/29):
The lungs show moderate airspace disease in right lower lung field concerning for pneumonia.. No pleural effusion or pneumothorax.
Head CT (03/29):
There is severe ventricular sulcal prominence consistent with atrophy. There is mild decreased attenuation about the lateral ventricles consistent with periventricular small vessel ischemic disease. Both progressed.
No acute intracranial pathology.
Patient was admitted for management of sepsis due to UTI and/or pneumonia. Patient was started on IV fluids and Zosyn. Blood culture and urine culture were sent. Blood culture came back negative after 4 days. Urine culture revealed infection with
Klebsiella pneumonia. During course of stay, leukocytosis resolved and patient remained afebrile. Hyponatremia resolved with fluids. TSH, folate and vitamin B12 were within normal limits. On day 4 of admission, Zosyn was switched to Ceftin,
however patient had difficulty swallowing, so Cefzil was given instead.
During admission, patient also underwent speech evaluation for assessing the possibility of aspiration pneumonia. VSE revealed minimal distention of PES with backflow into pharynx. Speech recommend IDDSI 5 and thick liquids diet. ENT and GI were
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 Unfortunately, patient would not allow/ tolerate endoscopic exam of hypopharynx; however, patient's son was given contact information of Dr. Callaway's office to follow as outpatient for possible
esophageal dilation. GI mentioned if patient does not tolerate diet, PEG could be considered.
Throughout stay, patient was treated with home medications (as prior to admission) for treatment of chronic conditions including rivastigmine for dementia. At times, he would become aggressive and needed physical restraints and Risperdal.
Today, patient is medically stable for discharge to home with VN (per son's decision who is POA). He is advised to follow-up with speech therapist and ENT after discharge. Instruction regarding continuing treatment with Cefzil have been given.
Discharge Plan
-
Patient Disposition: Home (Routine Discharge)
Discharge Diagnosis/Procedures: Aspiration pneumonia, urinary tract infection, dysphagia
Condition: Fair
Diet: Other diet
Additional Diets: IDDSI 5 (minced/moist), moderately thickened liquids
Activity: With assistance
Driving Restrictions: No driving
Bathing Restrictions: None
Other Services: VN
Referrals:
UNKNOWN - PT NOT,INTERVIEWE [Family Provider] - in less than 1 week
Prescriptions:
New
pantoprazole 40 mg Tablet,Delayed Release (Dr/Ec)
40 mg PO DAILY Qty: 30 0RF
cefprozil 125 mg/5 mL Suspension For Reconstitution
500 mg PO BID Qty: 10 0RF
Continued
trazodone 50 mg Tablet
50 mg PO HS PRN (Reason: sleep)
levothyroxine 50 mcg Tablet
50 mcg PO DAILY
benazepril 10 mg Tablet
10 mg PO DAILY
rivastigmine 9.5 mg/24 hour Patch 24 Hour
9.5 mg TRANSDERMAL DAILY
Discontinued
omeprazole magnesium 20 MG capsule,delayed release(DR/EC)
20 mg PO DAILY
Discharge Orders:
Discharge Patient (As Directed); Ordered 04/02/24
Ordered By: Kuldeep Song
Discharge Date and Time
Discharge Date/Time: 04/02/24 11:54
Print Language: PASHTO
== END 2024-04-02 11:54 | disposition home health service (06) | DRG 871 ==
LOC: 3 WEST ACU 23:38
PROVIDERS: Hospitalist; Physician Assistant; Registered Nurse; ADMITTING PHYSICIAN Internal Medicine; ATTENDING PHYSICIAN Internal Medicine; CONSULT PHYSICIAN Otolaryngology; EMERGENCY PHYSICIAN Emergency Medicine
DX: A41.59 Other Gram-negative sepsis (principal); G92.8 Other toxic encephalopathy; J18.9 Pneumonia, unspecified organism; J69.0 Pneumonitis due to inhalation of food and vomit; J44.0 Chronic obstructive pulmonary disease with (acute) lower respiratory infection; N39.0 Urinary tract infection, site not specified; E87.1 Hypo-osmolality and hyponatremia; F02.811 Dementia in other diseases classified elsewhere, unspecified severity, with agitation; Z66 Do not resuscitate; G30.9 Alzheimer's disease, unspecified; E03.9 Hypothyroidism, unspecified; E78.00 Pure hypercholesterolemia, unspecified; I10 Essential (primary) hypertension; K21.9 Gastro-esophageal reflux disease without esophagitis; Z79.899 Other long term (current) drug therapy; Z11.52 Encounter for screening for COVID-19; Z79.890 Hormone replacement therapy; Z87.891 Personal history of nicotine dependence; Z78.1 Physical restraint status; Z86.79 Personal history of other diseases of the circulatory system
CPT/HCPCS: 70450; 71046; 74230; 80048; 80053; 81003; 81015; 82607; 82746; 83605; 84145; 84443; 85025; 85027; 87040; 87070; 87077; 87086; 87186; 87449; 87502; 87811; 92610; 92611; 93005; 94640; 96361; 96365; 96366; 97166; 97530; 97535; 99285